=== PATIENT | female | born 1970 | race Caucasian/White ===

== ENCOUNTER 2019-02-05 11:18 | Emergency (ER) | payer MEDICAID ==
[~2019-02-05] VITALS: Ht 152.4 cm; Wt 68.2 kg
[2019-02-05] MEDS ORDERED: METF-960 PO (11:37)
[2019-02-05] MEDS ORDERED: htn med PO (11:37)
[2019-02-05] MEDS ORDERED: high cholesterol med PO (11:37)
[2019-02-05] MEDS ORDERED: ACETAMINOPHEN 500 MG TABLET PO ONE (13:15)
[2019-02-05] MEDS ORDERED: BACITRACIN 0.9 GM PACKET OINTMENT TP ONE (13:15)
[2019-02-05] MEDS ORDERED: LIDOCAINE/PF 1% 5 ML VIAL INJ ONE (13:15)
[2019-02-05 14:15] VITALS: BP 111/73
[2019-02-05 14:39] LABS: GLUCOSE,POINT OF CARE 251 MG/DL (70-110)
== END 2019-02-05 14:37 | disposition home or self-care (01) ==
LOC: EMS 11:18
DX: S61.412A Laceration without foreign body of left hand, initial encounter (principal); E78.00 Pure hypercholesterolemia, unspecified; I10 Essential (primary) hypertension; Z79.899 Other long term (current) drug therapy; W26.0XXA Contact with knife, initial encounter; Y93.G1 Activity, food preparation and clean up; Y92.89 Other specified places as the place of occurrence of the external cause; Y99.8 Other external cause status
CPT/HCPCS: 12002; 82962; 99283; J2001

== ENCOUNTER 2019-02-14 14:02 | Emergency (ER) | payer MEDICAID ==
[~2019-02-14] VITALS: Ht 152.4 cm; Wt 69.1 kg
[~2019-02-14 14:02] MED LIST: METF-960 PO; high cholesterol med PO
[2019-02-14 14:26] VITALS: BP 141/82
== END 2019-02-14 15:33 | disposition home or self-care (01) ==
LOC: EMS 14:04
DX: S61.412D Laceration without foreign body of left hand, subsequent encounter (principal); E78.00 Pure hypercholesterolemia, unspecified; E11.9 Type 2 diabetes mellitus without complications; Z48.02 Encounter for removal of sutures; Z79.899 Other long term (current) drug therapy; X58.XXXD Exposure to other specified factors, subsequent encounter